=== PATIENT | male | born 1955 | race Caucasian/White ===

== ENCOUNTER → 2016-05-22 | Outpatient (CLI) | payer BC ==
[~2016-05-22] MED LIST: OPTIRAY 320 IV PRN
--- NOTE | 2016-05-22 13:37 | DIAGNOSTIC IMAGING REPORT ---
CT SCAN OF THE CHEST, ABDOMEN, AND PELVIS WITH IV CONTRAST CLINICAL HISTORY: Colon cancer. COMPARISON STUDY: Chest CT dated 04/29/2015. Abdominal CT dated 06/12/2015. TECHNIQUE: Following the IV administration of 93 of Optiray 320, CT scan of the chest, abdomen, and pelvis was performed from the thoracic inlet to the proximal femora. Images are reviewed in the axial, sagittal, and coronal planes. IV contrast was administered without complication. Automated dose control exposure was utilized. CT DOSE: 1653.54 mGy.cm FINDINGS: CHEST: Thyroid: Imaged portions of the thyroid gland are normal in size and attenuation. Thoracic aorta: The thoracic aorta is normal in caliber and demonstrates standard 3-vessel arch anatomy. No dissection is seen. Pulmonary vasculature: The pulmonary trunk is normal in caliber. There are no filling defects identified in the central pulmonary vessels to indicate pulmonary was. Note that this examination was not protocoled for evaluation of the pulmonary arteries. Heart: The heart is top normal in size and without pericardial effusion. There are coronary artery calcifications. Lungs and pleural spaces: Bibasilar scarring versus atelectasis is similar to previous. There is no airspace consolidation typical for pneumonia or pleural effusion. The trachea and central airways are clear. No concerning pulmonary lesion is identified. Mediastinum: There is no mediastinal lymphadenopathy. Lizzy: Clear. Axillae: There is no axillary lymphadenopathy. Bony thorax: No lytic or blastic lesions are identified. ABDOMEN AND PELVIS: Liver: The contrast-enhanced liver is normal in size, contour, and attenuation. There is no intrahepatic or ductal dilatation. The hepatic veins and portal veins are patent. Gallbladder: Small gallstones are noted. The gallbladder is otherwise normal in appearance. Spleen: Normal in size and attenuation. Pancreas: Unremarkable. Adrenal glands: Unremarkable. Kidneys: The contrast enhanced kidneys demonstrate mild cortical atrophy and are without hydronephrosis. There are bilateral parapelvic cysts. The kidneys enhance symmetrically. Abdominal vasculature: The abdominal aorta is normal in course and caliber noting scattered foci of atherosclerotic calcification. Bowel: There are postoperative changes from right hemicolectomy with ileocolic anastomosis. No bowel obstruction is seen. There is mild diverticulosis of the remaining colon without CT evidence of acute diverticulitis. Peritoneum: There is no intraperitoneal free air or abdominal ascites. There is a fat-containing supraumbilical hernia. There is evidence of previous ventral hernia repair with a midline surgical scar. Lymphadenopathy: None. Pelvic viscera: The bladder, prostate, and seminal vesicles are normal as visualized. There is fatty reconversion along the left inguinal canal. Skeletal structures: There is mild lumbosacral spondylosis. Degenerative change is noted in the sacroiliac joints. No lytic or blastic lesions are seen. IMPRESSION: 1. There is no evidence of metastatic disease in the chest, abdomen, or pelvis. 2. There is no airspace consolidation or pleural effusion. 3. There are postoperative changes from right hemicolectomy with ileocolic anastomosis. No bowel obstruction is seen. 4. There is mild diverticulosis of the remaining colon without CT evidence of acute diverticulitis. 5. Cholelithiasis. 6. Additional findings as above. Electronically signed by: Angel Parish M.D. 05/22/2016 1:35 PM Dictated Date/Time: 05/22/2016 1:28 PM
== END | disposition home or self-care (01) ==
LOC: C.CTS 12:30
PROVIDERS: ATTEND Nurse Practitioner
DX: C18.4 Malignant neoplasm of transverse colon (principal)

== ENCOUNTER 2019-11-21 11:42 | Inpatient (IN) ==
--- OUTSIDE RECORDS SUMMARY | 2019-11-21 11:44 | External Medical Summary | Continuity of Care Document ---
:1955 Author Name Romi Parra, Provider Address Unavailable Unavailable , Care Team Providers Name Role Phone Frantz Chapa M.D. Unavailable [email or web address], S Unavailable Unavailable Unavailable Unavailable Unavailable Assessments Assessed Problems:Incisional hernia Problems Incisional hernia (553.21) (K43.2) Adenocarcinoma, colon (153.9) (C18.9) Allergies and Adverse Reactions No Known Drug Allergies (Allergy) Medications No Reported Medications Refills: 0 Procedures History of Partial Colectomy Status: Com pleted 28-Apr-2013 0:00 History of Inguinal Hernia Repair Status : Completed History of Incisional Hernia Repair Stat us: Completed Immunizations Immunizations not documented Family History Father Family history of Progressive supranuclear palsy (333.0) (G2 3.1) Status: Active Social History - Smoking Status Ex-smoker Interventions Discussion/SummaryPost-operative inguinal herniorrhaphy. The patient is doing well, no problems reported and the patient is satisfied. We discussed resumption of normal activities/return to work type of issues. Follow up will be prn. Plan of Treatment Planned Observations Planned Goals not documented Results No Known Results Results not documented Encounters Appointment; Frantz Chapa M.D. 30-Jul-2015 15:20 Encounter Diagnosis: Problem not documented
--- OUTSIDE RECORDS SUMMARY | 2019-11-21 11:45 | External Medical Summary | Continuity of Care Document ---
:1955 Author Name Romi Parra, Provider Address Unavailable Unavailable , Care Team Providers Name Role Phone Frantz Chapa M.D. Unavailable [email or web address] [email or web address], S Unavailable Unavailable Unavailable Unavailable Unavailable Assessments Assessed Problems:Incisional hernia Problems Adenocarcinoma, colon (153.9) (C18.9) Incisional hernia (553.21) (K43.2) Allergies and Adverse Reactions No Known Drug [...]
[2019-11-21 12:27] LABS: Appearance Urine Cloudy (Clear); Bacteria Urine Automated Negative (Negative); Blood Urine Negative (Negative); Color Urine Dark Yellow; Epithelial Cell Urine Auto >30 /lpf (0-5); Glucose Urine UA Negative (Negative); Ketones Urine Negative (Negative); Leukocyte Esterase Urine Negative (Negative); Nitrite Urine Negative (Negative); Protein Urine 1+ (Negative); RBC Urine Automated 0-4 /hpf (0-4); Specific Gravity Urine 1.032 (1.000-1.030); Urobilinogen Urine Negative (Negative)
[2019-11-21 12:30] LABS: Basophils # (auto) 0.01 K/uL (0-0.2); Basophils % (auto) 0.1 %; Eosinophils # (auto) 0.01 K/uL (0-0.5); Eosinophils % (auto) 0.1 %; Hematocrit (blood only) 53.9 % (42-52); Hemoglobin 19.3 g/dL (14.0-18.0); Immature Granulocytes # (auto) 0.01 K/uL (0.00-0.02); Immature Granulocytes % (auto) 0.1 %; Lymphocytes # (auto) 1.66 K/uL (1.2-3.4); Lymphocytes % (auto) 21.9 %; Mean Corpuscular Hemoglobin 32.6 pg (25-34); Mean Corpuscular Hgb Conc 35.8 g/dL (32-36); Mean Platelet Volume 9.8 fL (7.4-10.4); Monocytes # (auto) 1.51 K/uL (0.11-0.59); Monocytes % (auto) 19.9 %; Neutrophils # (auto) 4.39 K/uL (1.4-6.5); Neutrophils % (auto) 57.9 %; Platelet Count 281 K/uL (130-400); RDW Coefficient of Variation 13.3 % (11.5-14.5); RDW Standard Deviation 44.2 fL (36.4-46.3); Red Blood Count 5.92 M/uL (4.7-6.1); White Blood Count 7.59 K/uL (4.8-10.8)
[2019-11-21 12:36] LABS: Bilirubin Urine Negative (Negative); Ictotest Urine Negative (Negative)
[2019-11-21 12:49] LABS: Albumin Level 4.1 gm/dl (3.4-5.0); BUN Creatinine Ratio 18.5 (10-20); Calcium 9.2 mg/dl (8.5-10.1); Creatinine Clr Calc Pharmacy 34.4 ml/min; Est GFR (African American) 31.3; Potassium 3.6 mmol/L (3.5-5.1)
[2019-11-21 12:52] LABS: Albumin Globulin Ratio 0.8 (0.9-2); Bilirubin,Total 0.7 mg/dl (0.2-1); Globulin 5.4 gm/dl (2.5-4.0); Mucus Urine Present (None Prsent); Total Protein 9.5 gm/dl (6.4-8.2)
[2019-11-21] MEDS ORDERED: SODIUM CHLORIDE 0.9% 1000ML 1,000 ML IV STA (12:55)
[2019-11-21] MEDS ORDERED: SODIUM CHLORIDE 0.9% 1000ML 500 ML IV ONE (12:55)
--- NOTE | 2019-11-21 13:54 | CT Scan Report ---
CT SCAN OF THE ABDOMEN AND PELVIS WITHOUT CONTRAST CLINICAL HISTORY: Abdominal pain. History of bowel obstruction COMPARISON STUDY: May 2016 TECHNIQUE: CT scan of the abdomen and pelvis was performed from the lung bases to the proximal femurs . Images are reviewed in the axial, sagittal, and coronal planes. IV contrast was not administered fo r this examination. A dose lowering technique was utilized adhering to the principles of ALARA. CT DOSE: 953.44 mGycm FINDINGS: Lower chest: There is mild lower lobe bronchiectasis and areas of subsegmental atelectasis/scarring Liver: There is hepatic steatosis. No focal masses are visualized in this noncontrast study. Gallbladder: Cholelithiasis Spleen: Normal in size and attenuation. Pancreas: Unremarkable. Adrenal glands: Unremarkable. Kidneys: There are bilateral parapelvic renal cysts. No renal, ureteral, or bladder calculi are visua lized. Bowel: There are postsurgical changes of a right hemicolectomy with ileocolonic anastomosis. There is colonic diverticulosis. There is no evidence of acute diverticulitis. There are multiple fluid-fille d small bowel loops with air-fluid levels. There is also fluid present within the colon. The proximal jejunal loops are nondilated. The etiology of the more distal small bowel dilatation is therefore un clear. There are several borderline thickened small bowel loops. Small bowel loops appear adherent to an anterior hernia mesh. Peritoneum: There is no intraperitoneal free air or abdominal ascites. There is a fat-containing left inguinal hernia. There are several small fat-containing ventral hernias. Vasculature: The abdominal aorta is normal in course and caliber. Adenopathy: None. Pelvic viscera: There is mild prostatomegaly Skeletal structures: No destructive osseous lesions are seen. IMPRESSION: 1. Interval development of multiple dilated small bowel loops containing air-fluid levels. There is a lso fluid present within the remaining colon, in this patient status post a right hemicolectomy. The proximal small bowel is of normal caliber. There are several small bowel loops within the right lower quadrant demonstrating bowel wall thickening. The etiology of the mid and distal small bowel dilatat ion is therefore not known. This could represent an early bowel obstruction or ileus/enteritis. Clini aiden and imaging follow-up is recommended. 2. Cholelithiasis 3. Fat-containing left inguinal hernia. Multiple small fat-containing ventral hernias 4. Hepatic steatosis ACT 112: Negative or not required by law. Electronically signed by: Avtar Gonzalez M.D. 11/21/2019 1:53 PM
[2019-11-21] MEDS ORDERED: ONDANSETRON INJ 2 MG/ML 2 ML VIAL IV STA (14:08)
[2019-11-21] MEDS ORDERED: SODIUM CHLORIDE 0.9% 1000ML 1,000 ML IV ONE (14:09)
--- NOTE | 2019-11-21 14:47 | History & Physical Report ---
Date of Service November 21, 2019 Assessment & Plan (1) Abdominal pain: Enteritis versus resolving small bowel obstruction Acetaminophen PRN, Dilaudid for severe pain. (2) Partial small bowel obstruction: Suspected resolving partial SBO. Likely secondary to adhesions from previous surgery. Can have clear liquid diet as long as no nausea or vomiting. IV fluids as below for ADELIA. (3) Enteritis: Possible diagnosis. Stool culture and C. difficile testing pending Outpatient COVID-19 test pending, since this will take several days to return will perform in-house to discontinue isolation. (4) COVID-19 virus test result unknown: As above (5) Diarrhea: Last BM 10 BM/day, mostly water. Stool culture and C. difficile toxin test pending (6) ADELIA (acute kidney injury): Suspected prerenal. No obstructive uropathy on CT. Additional NSS 1 L bolus now. Been rehydrated with LR @175 ml/hr (7) Cancer of transverse colon: s/p hemicolectomy. Most recent CEA in September negative. Admission and Anticipated Discharge Date Admission Date: November 21, 2019 History of Present Illness Chief Complaint: Abdominal pain, diarrhea, vomiting. Primary Care Provider: Leonardo Swan Idris Metcalf is a 64-year-old male with prior history of colon cancer status post hemicolectomy who presents to the ER with abdominal pain, diarrhea, vomiting. Started 2 days ago. Initially with cramping central abdominal pains every 5 minutes. Similar pains with prior small bowel obstruction. Then started having loose stool (approx 20 BM in last 2 days), a lot of nausea and vomiting. Nothing abnormal to eat in the 2 days prior to this. He lives with his who is not sick. He called his PCP yesterday who arranged an outpatient COVID-19 test which is outstanding this time -he was told it would take approximately 7 days to come back. He denies any cough, shortness of breath, loss of taste or smell. He does note hoarseness and a sore throat however this occurred after 2 days of dry heaves. 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 In the ER he had CT abdomen/pelvis with IV contrast. This showed multiple dilated small bowel loops containing air-fluid levels representing possible early bowel obstruction versus ileus/enteritis. He continues to have loose stool, occasionally watery. Still nauseous but no longer vomiting. Abdominal pain is subsiding. Main reason for coming to the ER today was poor oral intake. Allergies Allergy/AdvReac Type Severity Reaction Status Date / Time No Known Allergies Allergy Unverified 11/21/19 14:21 Home Medications Home Medications Medication Instructions Recorded Confirmed Type No Known Home Medications 11/21/19 11/21/19 History Past Med/Surg History Medical History Colon cancer Surgical History History of incisional hernia repair 2014 History of right hemicolectomy 2013 Social History Smoking Status: Former smoker Do You Dip or Chew Tobacco: No; Hx Alcohol Use: No Hx Substance Use: No Preferred Language: [place]ib[place]ian Communication Ability: Effective Draw Furnace Tender Required: No Beliefs That Will Affect Care: None Current Living Situation: Spouse Current Living Situation Comment: laya metcalf Feels Safe at Home: Yes Review of Systems Review of Systems: All systems reviewed & are unremarkable except as noted in HPI & below Physical Exam Constitutional: well developed and well nourished; no acute distress Eyes: + anicteric sclerae; normal pupil size ENMT: external ear and nose normal, oropharynx normal Neck: trachea midline, no thyromegaly Respiratory: normal respiratory effort, lungs clear to auscultation Cardiovascular: RRR, no murmur, no edema Gastrointestinal (Abdomen): Inspection/Auscultation: + abdomen distended and + hypoactive bowel sounds Percussion/Palpation: + abdomen tender (Generalized) and abdomen soft; no guarding and abdomen not rigid Musculoskeletal: no cyanosis or clubbing, extremities motor strength 5/5 Skin: no rashes, warm and dry Neurologic: moves all extremities and awake; not confused Psychiatric: A+Ox3, euthymic affect Genitourinary: no CVA tenderness Results & Data Results & Data ([facility]) Vital Signs (Past 12 Hours) Vital Signs Temp Pulse Pulse Resp BP BP Pulse Ox 11/21/19 14:00 37.1 C 69 18 147/84 H 94 11/21/19 13:00 94 11/21/19 11:45 84 163/[address] SCAN OF THE ABDOMEN AND PELVIS WITHOUT CONTRAST IMPRESSION: 1. Interval development of multiple dilated small bowel loops containing air- fluid levels. There is also fluid present within the remaining colon, in this patient status post a right hemicolectomy. The proximal small bowel is of normal caliber. There are several small bowel loops within the right lower quadrant demonstrating bowel wall thickening. The etiology of the mid and distal small bowel dilatation is therefore not known. This could represent an early bowel obstruction or ileus/enteritis. Clinical and imaging follow-up is recommended. 2. Cholelithiasis 3. Fat-containing left inguinal hernia. Multiple small fat-containing ventral hernias 4. Hepatic steatosis Code Status & VTE Plan Code Status Full VTE Prophylaxis Plan VTE Prophylaxis will be ordered: No PG Care Time/CCT Total # of Minutes Spent Total Time Spent with Patient: Total time spent is greater than 50% in coordination of care (as documented) at patient's floor/unit and/or counseling patient: Coding Level of Care Code 96574 Initial Inpt Care Lvl 2 Diagnoses Abdominal pain R10.9 Partial small bowel obstruction K56.600 Enteritis K52.9 COVID-19 virus test result unknown Z20.828 Diarrhea R19.7 ADELIA (acute kidney injury) N17.9 Cancer of transverse colon C18.4
--- NOTE | 2019-11-21 17:31 | Emergency Department Note ---
Impression & Plan Partial small bowel obstruction, ADELIA (acute kidney injury) ED Provider Note INFORMANT: Patient ED PROVIDER(S): Sylvester Mg MD CHIEF COMPLAINT: Abdominal pain PLAN: Disposition: Admit Condition: Good MEDICAL DECISION MAKING: Patient presented with upper abdominal discomfort. He noted yesterday was worse than today but was still having symptoms. He was hydrated. He was given Zofran. He declined analgesia. The patient underwent CT imaging and had blood work obtained. He had acute kidney injury on his blood work. CT imaging reveals what is consistent with a partial small bowel obstruction. The patient will need further management in the hospital. Patient was in agreement. Consultation was made with [facility] internal medicine, Dr. Brennan. He evaluated patient in the ER and admitted him. Triage Nursing notes reviewed and agree them. Vital Signs: reviewed and remarkable for no significant abnormalities Differential diagnosis: Etiologies such as obstruction, gastroenteritis, food borne illness, infections, appendicitis, diverticulitis, inflammatory bowel disease, GI bleed, biliary pathology, as well as others were entertained. Diagnostics interpreted by me: Imaging studies: CT imaging of the abdomen pelvis reveals scattered air-fluid levels concerning for partial obstruction. I refer you to the EMR for further details. Consultation(s): [facility] hospitalist service HPI: The patient is a 64 year old male who presents to the Emergency Room with complaints of abdominal pain. This started 2 days ago and is feeling similar to prior bowel blockage. The patient also notes the following associated symptoms, nausea, vomiting. The patient has found no relieving factors. Current pain is rated as 4/10. Patient declines analgesia. He contacted his primary office who directed him for COVID testing. No other medications or work-up was performed. Because he was still feeling symptomatic he was directed to the ER for further evaluation. He denies any loss of taste or smell. He has no sick contacts with kaminski patients. Pt denies LOC, headache, fevers, chills, diaphoresis, visual changes, neck pain, chest pain, breathing difficulties, back pain, melena, hematochezia, urinary symptoms, numbness, weakness, lymphadenopathy, rash, or other complaints. ROS: See above HPI for pertinent positives & negatives. A total of 10 systems reviewed and were otherwise negative. PAST MEDICAL HISTORY:See Below, colon cancer PAST SURGICAL HISTORY:See Below, bowel resection FAMILY HISTORY:See Below SOCIAL HISTORY:See Below, no smoking HOME MEDICATIONS:See Below ALLERGIES:See Below VITALS:See Below PHYSICAL EXAMINATION: GENERAL: Awake, alert, uncomfortable-appearing, in no distress HENT: Normocephalic, atraumatic. Oropharynx unremarkable. EYES: Normal conjunctiva. Sclera non-icteric. NECK: Inspection normal. Non-tender. Supple. No nuchal rigidity. FROM. No masses. RESPIRATORY: Clear to auscultation. No wheezes. No rales. Normal respiratory effort. CARDIAC: Normal rate. Normal rhythm. No murmurs. No rubs. Extremities warm and well perfused. Pulses equal. No JVD. GI: Soft, non-distended. Upper tenderness to palpation. No rebound or guarding. No masses. RECTAL: Deferred. MUSCULOSKELETAL: Atraumatic. Chest examination reveals no tenderness. The back is symmetrical on inspection without obvious abnormality. There is no CVA tenderness to palpation. No joint edema. LOWER EXTREMITIES: Calves are equal size bilaterally and non-tender. No edema. No discoloration. NEURO: Normal sensorium. No sensory or motor deficits noted. SKIN: No rash or jaundice noted. Sylvester Mg MD Past Med/Surg History Medical History (Updated 11/21/19 @ 17:27 by Sylvester Mg MD) Colon cancer Surgical History (Updated 11/21/19 @ 14:50 by Ronnie Brennan MD) History of incisional hernia repair 2014 History of right hemicolectomy 2014 Social History Smoking Status: Never smoker Preferred Language: Kazakh Feels Safe at Home: Yes Allergies Allergies Allergy/AdvReac Type Severity Reaction Status Date / Time No Known Allergies Allergy Unverified 11/21/19 14:21 Home Meds Home Medications Medication Instructions Recorded Confirmed No Known Home Medications 11/21/19 11/21/19 Results & Data (ED) Vital Signs Vital Signs - 24 hr 11/21/19 11:45 11/21/19 13:00 11/21/19 14:00 Temperature 37.1 C Temperature Source Oral Pulse Rate 84 Pulse Rate [Right Finger] 69 Pulse Rhythm Regular Respiratory Rate 18 Respiratory Effort / Characteristics Non-Labored Spontaneous Non-Labored Spontaneous Respiratory Depth Normal Normal Respiratory Pattern Regular Regular Blood Pressure 163/97 H Blood Pressure [Right Arm] 147/84 H Blood Pressure Mean 119 Blood Pressure Mean [Right Arm] 105 Blood Pressure Position [Right Arm] Sitting Pulse Oximetry 95 94 94 Oxygen Delivery Method Room Air Room Air Room Air Sepsis Recent Fever Within 48 Hours No Sepsis New/Unexplained Change in Mental Status No Sepsis Action Taken by Nursing No Action Required 11/21/19 15:00 11/21/19 17:00 Temperature Temperature Source Pulse Rate Pulse Rate [Right Finger] 68 71 Pulse Rhythm Respiratory Rate 20 18 Respiratory Effort / Characteristics Non-Labored Spontaneous Non-Labored Spontaneous Respiratory Depth Normal Normal Respiratory Pattern Regular Regular Blood Pressure Blood Pressure [Right Arm] 141/91 H 145/85 H Blood Pressure Mean Blood Pressure Mean [Right Arm] 107 105 Blood Pressure Position [Right Arm] Lying Pulse Oximetry 98 93 Oxygen Delivery Method Room Air Room Air Sepsis Recent Fever Within 48 Hours Sepsis New/Unexplained Change in Mental Status Sepsis Action Taken by Nursing Laboratory Data Result diagrams: 11/21/19 12:10 11/21/19 12:10 Lab Results 11/21/19 11/21/19 11/21/19 Range/Units 12:10 12:10 12:10 WBC 7.59 (4.8-10.8) K/uL RBC 5.92 (4.7-6.1) M/uL Hgb 19.3 H (14.0-18.0) g/dL Hct 53.9 H (42-52) % MCV 91.0 (80-100) fL MCH 32.6 (25-34) pg MCHC 35.8 (32-36) g/dL RDW Std Deviation 44.2 (36.4-46.3) fL RDW Coeff of Alena 13.3 (11.5-14.5) % Plt Count 281 (130-400) K/uL MPV 9.8 (7.4-10.4) fL Immature Gran % (Auto) 0.1 % Neut % (Auto) 57.9 % Lymph % (Auto) 21.9 % [place] % (Auto) 19.9 % Eos % (Auto) 0.1 % Baso % (Auto) 0.1 % Neut # (Auto) 4.39 (1.4-6.5) K/uL Lymph # (Auto) 1.66 (1.2-3.4) K/uL [place] # (Auto) 1.51 H (0.11-0.59) K/uL Eos # (Auto) 0.01 (0-0.5) K/uL Baso # (Auto) 0.01 (0-0.2) K/uL Immature Gran # (Auto) 0.01 (0.00-0.02) K/uL Sodium 135 L (136-145) mmol/L Potassium 3.6 (3.5-5.1) mmol/L Chloride 106 (98-107) mmol/L Carbon Dioxide 18 L (21-32) mmol/L Anion Gap 11.0 (3-11) BUN 45 H (7-18) mg/dl Creatinine 2.45 H (0.6-1.4) mg/dl Est Cr Clr Drug Dosing 34.4 ml/min Est GFR ( Amer) 31.3 Est GFR (Non-Af Amer) 27.0 BUN/Creatinine Ratio 18.5 (10-20) Glucose 145 H (70-99) mg/dl Calcium 9.2 (8.5-10.1) mg/dl Magnesium (1.8-2.4) mg/dl Total Bilirubin 0.7 (0.2-1) mg/dl AST 18 (15-37) U/L ALT 35 (12-78) U/L Alkaline Phosphatase 81 (45-117) U/L Total Protein 9.5 H (6.4-8.2) gm/dl Albumin 4.1 (3.4-5.0) gm/dl Globulin 5.4 H (2.5-4.0) gm/dl Albumin/Globulin Ratio 0.8 L (0.9-2) Lipase 48 L (73-393) U/L Urine Color Dark Yellow Urine Appearance Cloudy A (Clear) Urine pH 5.0 (4.5-7.5) Ur Specific [place] 1.032 H (1.000-1.030) Urine Protein 1+ H (Negative) Urine Glucose (UA) Negative (Negative) Urine Ketones Negative (Negative) Urine Blood Negative (Negative) Urine Nitrite Negative (Negative) Urine Bilirubin Negative (Negative) Urine Urobilinogen Negative (Negative) Ur Leukocyte Esterase Negative (Negative) Urine WBC (Auto) 1-5 (0-5) /hpf Urine RBC (Auto) 0-4 (0-4) /hpf U Hyaline Cast (Auto) 5-10 H (0-5) /lpf U Epithel Cells (Auto) >30 H (0-5) /lpf Urine Bacteria (Auto) Negative (Negative) Urine Mucus Present A (None Prsent) COVID-19 Eval Order 11/21/19 11/21/19 Range/Units 12:10 16:32 WBC (4.8-10.8) K/uL RBC (4.7-6.1) M/uL Hgb (14.0-18.0) g/dL Hct (42-52) % MCV (80-100) fL MCH (25-34) pg MCHC (32-36) g/dL RDW Std Deviation (36.4-46.3) fL RDW Coeff of Alena (11.5-14.5) % Plt Count (130-400) K/uL MPV (7.4-10.4) fL Immature Gran % (Auto) % Neut % (Auto) % Lymph % (Auto) % [place] % (Auto) % Eos % (Auto) % Baso % (Auto) % Neut # (Auto) (1.4-6.5) K/uL Lymph # (Auto) (1.2-3.4) K/uL [place] # (Auto) (0.11-0.59) K/uL Eos # (Auto) (0-0.5) K/uL Baso # (Auto) (0-0.2) K/uL Immature Gran # (Auto) (0.00-0.02) K/uL Sodium (136-145) mmol/L Potassium (3.5-5.1) mmol/L Chloride (98-107) mmol/L Carbon Dioxide (21-32) mmol/L Anion Gap (3-11) BUN (7-18) mg/dl Creatinine (0.6-1.4) mg/dl Est Cr Clr Drug Dosing ml/min Est GFR ( Amer) Est GFR (Non-Af Amer) BUN/Creatinine Ratio (10-20) Glucose (70-99) mg/dl Calcium (8.5-10.1) mg/dl Magnesium 2.6 H (1.8-2.4) mg/dl Total Bilirubin (0.2-1) mg/dl AST (15-37) U/L ALT (12-78) U/L Alkaline Phosphatase (45-117) U/L Total Protein (6.4-8.2) gm/dl Albumin (3.4-5.0) gm/dl Globulin (2.5-4.0) gm/dl Albumin/Globulin Ratio (0.9-2) Lipase (73-393) U/L Urine Color Urine Appearance (Clear) Urine pH (4.5-7.5) Ur Specific [place] (1.000-1.030) Urine Protein (Negative) Urine Glucose (UA) (Negative) Urine Ketones (Negative) Urine Blood (Negative) Urine Nitrite (Negative) Urine Bilirubin (Negative) Urine Urobilinogen (Negative) Ur Leukocyte Esterase (Negative) Urine WBC (Auto) (0-5) /hpf Urine RBC (Auto) (0-4) /hpf U Hyaline Cast (Auto) (0-5) /lpf U Epithel Cells (Auto) (0-5) /lpf Urine Bacteria (Auto) (Negative) Urine Mucus (None Prsent) COVID-19 Eval Order Covid19 Done at [facility] Administered Medications Discontinued Medications Sodium Chloride (Nss 1000ml) 500 mls @ 999 mls/hr IV .Q31M ONE Stop: 11/21/19 13:25 Last Infusion: 11/21/19 13:50 Dose: 0 mls/hr Documented by: [id number] Admin: 11/21/19 13:17 Dose: 999 mls/hr Documented by: [id number] Sodium Chloride (Nss 1000ml) 1,000 mls @ 125 mls/hr IV .Q8H STA Stop: 11/21/19 20:54 Last Infusion: 11/21/19 15:17 Dose: 0 mls/hr Documented by: [id number] Admin: 11/21/19 14:04 Dose: 125 mls/hr Documented by: [id number] Sodium Chloride (Nss 1000ml) 1,000 mls @ 999 mls/hr IV .Q1H1M ONE Stop: 11/21/19 15:09 Last Infusion: 11/21/19 16:42 Dose: 0 mls/hr Documented by: [id number] Admin: 11/21/19 15:34 Dose: 999 mls/hr Documented by: [id number] Ondansetron HCl (Ondansetron Inj 2 Mg/Ml 2 Ml Vial) 4 mg IV NOW STA Stop: 11/21/19 14:09 Last Admin: 11/21/19 15:33 Dose: 4 mg Documented by: [id number] Discharge Plan Visit Data Chief Complaint: Abdominal Pain Stated Complaint: ABD PAIN ALL OVER, ? BOWEL BLOCKAGE ED Provider: Sylvester Mg Discharge Problem: Partial small bowel obstruction, ADELIA (acute kidney injury) Forms Stand Alone Forms: My [facility] Prescriptions Prescriptions: No Action No Known Home Medications RF: 0
[2019-11-21] MEDS: LACTATED RINGER'S 1,000 ML IV SCH (21:15)
[2019-11-22] MEDS: LACTATED RINGER'S 1,000 ML IV SCH ×4 (02:31→20:11)
[2019-11-22 07:20] LABS: Basophils # (auto) 0.01 K/uL (0-0.2); Basophils % (auto) 0.2 %; Eosinophils % (auto) 1.6 %; Hematocrit (blood only) 45.1 % (42-52); Hemoglobin 15.6 g/dL (14.0-18.0); Immature Granulocytes # (auto) 0.01 K/uL (0.00-0.02); Immature Granulocytes % (auto) 0.2 %; Lymphocytes # (auto) 1.84 K/uL (1.2-3.4); Lymphocytes % (auto) 28.5 %; Mean Corpuscular Hemoglobin 31.7 pg (25-34); Mean Corpuscular Hgb Conc 34.6 g/dL (32-36); Mean Corpuscular Volume 91.7 fL (80-100); Mean Platelet Volume 9.2 fL (7.4-10.4); Monocytes # (auto) 1.34 K/uL (0.11-0.59); Monocytes % (auto) 20.8 %; Neutrophils # (auto) 3.15 K/uL (1.4-6.5); Neutrophils % (auto) 48.7 %; Platelet Count 201 K/uL (130-400); RDW Coefficient of Variation 13.1 % (11.5-14.5); RDW Standard Deviation 44.1 fL (36.4-46.3); Red Blood Count 4.92 M/uL (4.7-6.1); White Blood Count 6.45 K/uL (4.8-10.8)
[2019-11-22 07:25] LABS: BUN Creatinine Ratio 23.2 (10-20); Calcium 7.8 mg/dl (8.5-10.1); Creatinine Clr Calc Pharmacy 64.9 ml/min; Est GFR (African American) 67.3; Est GFR (Non-African American) 58.1; Potassium 3.5 mmol/L (3.5-5.1)
[2019-11-22] MEDS ORDERED: CALCIUM GLUCONATE 10% 1,000 MG in SODIUM CHLORIDE 0.9% 50 ML IV ONE (14:30)
--- NOTE | 2019-11-22 15:44 | Hospitalist Progress Note ---
Date of Service November 22, 2019 Assessment & Plan (1) Abdominal pain: Enteritis versus resolving small bowel obstruction Acetaminophen PRN, Dilaudid for severe pain. (2) Partial small bowel obstruction: Suspected resolving partial SBO. Likely secondary to adhesions from previous surgery. Tolerating full liquid diet Continue IVF while taking in reduced po (3) Enteritis: Possible diagnosis. Stool culture pending, C. difficile negative COVID-19 negative (4) COVID-19 virus test result unknown: As above (5) ADELIA (acute kidney injury): No obstructive uropathy on CT. Been rehydrated with LR @175 ml/hr - will decrease to 100 ml/hr (6) Cancer of transverse colon: s/p hemicolectomy. Most recent CEA in September negative. (7) Hypocalcemia: Calcium 7.8 - will give 1,000 mg IV calcium gluconate repeat level am (8) DVT prophylaxis: SCDs, ambulation Admission and Anticipated Discharge Date Admission Date: November 21, 2019 Subjective Mr. Metcalf is improving, abdominal pain is getting better. Having diarrhea, no dark or bloody stools. No nausea or vomiting ROS Constitutional: no chills, aches, sweats or fever Respiratory: no sob,cough, sputum, or wheezing Cardiac: no chest pain, palpitations, edema, orthopnea or lightheadedness GI: see HPI : no dysuria or hesitancy Extremities: no joint pain or weakness Skin: no rash All other systems reviewed and negative Physical Exam Physical Exam: General: no distress Eyes: normal inspection, PERLL Respiratory: chest non tender, clear to auscultation, normal breath sounds, no respiratory distress, no accessory muscle use Cardiac: regular rate and rhythm, no rub or gallop, no murmur, no edema, no jvd GI/: active bowel sounds, no abd pain or tenderness, soft, non distended Extremities: normal range of motion, normal strength, non tender Neuro/Psych: alert and oriented x 3, normal mood and affect Skin: normal color, dry Results & Data Results & Data ([facility]) Vital Signs (Past 12 Hours) Vital Signs Temp Pulse Resp BP Pulse Ox 11/22/19 15:19 36.9 C 69 18 132/80 92 11/22/19 07:52 36.5 C 65 16 121/74 95 PG Care Time/CCT Total # of Minutes Spent Total Time Spent with Patient: Total time spent is greater than 50% in coordination of care (as documented) at patient's floor/unit and/or counseling patient: Coding Level of Care Code 69384 Subseq Hosp Care Lvl 2 Diagnoses Abdominal pain R10.9 Partial small bowel obstruction K56.600 Enteritis K52.9 COVID-19 virus test result unknown Z20.828 ADELIA (acute kidney injury) N17.9 Cancer of transverse colon C18.4 Hypocalcemia E83.51 DVT prophylaxis Z29.9
[2019-11-22] MEDS: HYDROmorphone INJ 0.5 MG/0.5 ML SYR IV PRN (23:56)
[2019-11-23] MEDS: LACTATED RINGER'S 1,000 ML IV SCH ×4 (05:18→20:13)
[2019-11-23] MEDS: HYDROmorphone INJ 0.5 MG/0.5 ML SYR IV PRN ×5 (05:21→18:39)
[2019-11-23 06:51] LABS: Hematocrit (blood only) 40.6 % (42-52); Hemoglobin 14.2 g/dL (14.0-18.0); Mean Corpuscular Hemoglobin 31.8 pg (25-34); Mean Corpuscular Volume 90.8 fL (80-100); Mean Platelet Volume 9.4 fL (7.4-10.4); Platelet Count 187 K/uL (130-400); RDW Coefficient of Variation 12.9 % (11.5-14.5); RDW Standard Deviation 42.6 fL (36.4-46.3); Red Blood Count 4.47 M/uL (4.7-6.1); White Blood Count 7.48 K/uL (4.8-10.8)
[2019-11-23 06:52] LABS: Albumin Level 2.7 gm/dl (3.4-5.0); BUN Creatinine Ratio 11.4 (10-20); Calcium 8.8 mg/dl (8.5-10.1); Creatinine Clr Calc Pharmacy 89.7 ml/min; Est GFR (African American) 99.6; Est GFR (Non-African American) 85.9; Potassium 3.4 mmol/L (3.5-5.1)
[2019-11-23 06:56] LABS: Albumin Globulin Ratio 0.8 (0.9-2); Bilirubin,Total 0.7 mg/dl (0.2-1); Globulin 3.6 gm/dl (2.5-4.0); Total Protein 6.3 gm/dl (6.4-8.2)
[2019-11-23] MEDS ORDERED: POTASSIUM CHLORIDE 20 MEQ TABCR PO STA (08:40)
--- NOTE | 2019-11-23 15:44 | XRay Report ---
KUB CLINICAL HISTORY: abdominal pain COMPARISON STUDY: CT of the abdomen and pelvis November 21, 2019. FINDINGS: Multiple loops of moderately dilated small bowel are noted. Small bowel dilatation has incr eased since CT of November 21, 2019. Stomach is mildly distended. IMPRESSION: Interval increase in small bowel dilatation which favors a small bowel obstruction. An i leus could appear similar but is considered less likely. ACT 112: Negative or not required by law. Electronically signed by: Lei Jules M.D. 11/23/2019 3:43 PM
--- NOTE | 2019-11-23 15:53 | Hospitalist Progress Note ---
Date of Service November 23, 2019 Assessment & Plan (1) Partial small bowel obstruction: Worsened sbo today as seen on repeat KUB. Patient with more pain and distention Had bm and passed a lot of gas this afternoon, no n/v so will hold off on NGT Continue pain control Consult gen surg (2) Enteritis: Possible diagnosis as seen on CT Stool culture negative, C. difficile negative COVID-19 negative (3) ADELIA (acute kidney injury): Resolved, creatinine was 2.45 on admission likely due to poor po intake, now 0.94. No obstructive uropathy on CT. Continue LR @ 140/hr as patient is again NPO (4) Cancer of transverse colon: s/p hemicolectomy. Most recent CEA in September negative. (5) Hypocalcemia: Replaced and resolved repeat level am (6) DVT prophylaxis: SCDs, ambulation Admission and Anticipated Discharge Date Admission Date: November 21, 2019 Subjective Mr. Metcalf is having increasing abdominal pain and distention as the day has gone on. He is not nauseas or vomiting. He is ambulating the halls. He is having liquid bowel movements but feels like his bowel is full of gas ROS Constitutional: no chills, aches, sweats or fever Respiratory: no sob,cough, sputum, or wheezing Cardiac: no chest pain, palpitations, edema, orthopnea or lightheadedness GI: no abdominal pain, nausea, vomiting, diarrhea or constipation : no dysuria or hesitancy Extremities: no joint pain or weakness Skin: no rash All other systems reviewed and negative Physical Exam Physical Exam: General: no distress Eyes: normal inspection, PERLL Respiratory: chest non tender, clear to auscultation, normal breath sounds, no respiratory distress, no accessory muscle use Cardiac: regular rate and rhythm, no rub or gallop, no murmur, no edema, no jvd GI/: active bowel sounds, no abd pain or tenderness, soft, non distended Extremities: normal range of motion, normal strength, non tender Neuro/Psych: alert and oriented x 3, normal mood and affect Skin: normal color, dry Results & Data Results & Data ([facility]) Vital Signs (Past 12 Hours) Vital Signs Temp Pulse Resp BP Pulse Ox 11/23/19 15:20 36.8 C 71 16 149/87 H 91 11/23/19 07:30 36.8 C 63 16 129/75 92 PG Care Time/CCT Total # of Minutes Spent Total Time Spent with Patient: Total time spent is greater than 50% in coordination of care (as documented) at patient's floor/unit and/or counseling patient: Coding Level of Care Code 02039 Subseq Hosp Care Lvl 3 Diagnoses Partial small bowel obstruction K56.600 Enteritis K52.9 ADELIA (acute kidney injury) N17.9 Cancer of transverse colon C18.4 Hypocalcemia E83.51 DVT prophylaxis Z29.9
--- NOTE | 2019-11-23 17:15 | Surgery Consultation ---
Date of Consultation November 23, 2019 Assessment & Plan (1) Partial small bowel obstruction: pt is a 64 year-old male who was admitted to hospital for abdominal pain, IMP: partial SBO, Plan, no emergent surgery indication now, I recommend to do conservative treatment, base on pt had BM today, hold NG tube insertion now, IV fluid, NPO, control pain, repeat labs, KUB in am, will F/U, pt and his agree with the plan, I answered all questions, Present on Admission?: Yes (2) Abdominal pain: History of Present Illness Attending Physician: Meek Street DO CC: abdominal pain History of Present Illness Chief Complaint: Abdominal pain, diarrhea, vomiting. Primary Care Provider: Leonardo Swan Idris Metcalf is a 64-year-old male with prior history of colon cancer status post hemicolectomy who presents to the ER with abdominal pain, diarrhea, vomiting. Started 2 days ago. Initially with cramping central abdominal pains every 5 minutes. Similar pains with prior small bowel obstruction. Then started having loose stool (approx 20 BM in last 2 days), a lot of nausea and vomiting. Nothing abnormal to eat in the 2 days prior to this. He lives with his who is not sick. He called his PCP yesterday who arranged an outpatient COVID-19 test which is outstanding this time -he was told it would take approximately 7 days to come back. He denies any cough, shortness of breath, loss of taste or smell. He does note hoarseness and a sore throat however this occurred after 2 days of dry heaves. On Wednesday he was as an antiques steam shower @ [facility]. In the ER he had CT abdomen/pelvis with IV contrast. This showed multiple dilated small bowel loops containing air-fluid levels representing possible early bowel obstruction versus ileus/enteritis. He continues to have loose stool, occasionally watery. Still nauseous but no longer vomiting. Abdominal pain is subsiding. Main reason for coming to the ER today was poor oral intake. I ( Sakshi Altman MD ) got a call consult SBO, I reviewed pt's H/P, Labs, CT- scan, KUB with pt and his , pt said that he had a BM today after KUB, 4 times BM yesterday, pt feels better compare 2-3 days ago, pt had right hemicolectomy for colon cancer in 2013, then pt had open repair ventral hernia with mesh in 2015, pt denies fever, no cough, Allergies Allergy/AdvReac Type Severity Reaction Status Date / Time No Known Allergies Allergy Unverified 11/21/19 14:21 Home Medications Home Medications Medication Instructions Recorded Confirmed Type No Known Home Medications 11/21/19 11/21/19 History Past Med/Surg History Medical History Colon cancer Surgical History History of incisional hernia repair 2014 History of right hemicolectomy 2013 Social History Smoking Status: Former smoker Do You Dip or Chew Tobacco: No; Hx Alcohol Use: No Hx Substance Use: No Preferred Language: Liberian Communication Ability: Effective Animated Cartoons Painter Required: No Beliefs That Will Affect Care: None Current Living Situation: Spouse Current Living Situation Comment: laya metcalf Feels Safe at Home: Yes Review of Systems Review of Systems: All systems reviewed & are unremarkable except as noted in HPI & below Allergies Allergy/AdvReac Type Severity Reaction Status Date / Time No Known Allergies Allergy Unverified 11/21/19 14:21 Home Medications Home Medications Medication Instructions Recorded Confirmed Type No Known Home Medications 11/21/19 11/21/19 History Patient History Medical History (Updated 11/23/19 @ 16:13 by SUMAN López) Colon cancer Surgical History History of incisional hernia repair 2014 History of right hemicolectomy 2013 Social History Smoking Status: Former smoker Do You Dip or Chew Tobacco: No; Hx Alcohol Use: No Hx Substance Use: No Preferred Language: Liberian Communication Ability: Effective Animated Cartoons Painter Required: No Beliefs That Will Affect Care: None Current Living Situation: Spouse Current Living Situation Comment: laya metcalf Feels Safe at Home: Yes Review of Systems Review of Systems: All systems reviewed & are unremarkable except as noted in HPI & below Constitutional: as per Subjective / HPI Eyes: as per Subjective / HPI Ear, Nose, Mouth, Throat: as per Subjective / HPI Respiratory: as per Subjective / HPI Cardiovascular: as per Subjective / HPI Gastrointestinal: as per Subjective / HPI colon cancer, S/P right hemicolectomy in 2014, open repair ventral hernia with mesh in 2016. Genitourinary: + as per Subjective / HPI and + problem reported (ADELIA) Musculoskeletal: as per Subjective / HPI Integumentary: as per Subjective / HPI Neurologic: as per Subjective / HPI Psychiatric: as per Subjective / HPI Endocrine: as per Subjective / HPI Hematologic / Lymphatic: as per Subjective / HPI Allergy / Immunological: as per Subjective / HPI Physical Exam Constitutional: WD/WN, vitals as above well developed and well nourished Eyes: PERRL, conjunctivae normal, anicteric sclerae ENMT: external ear and nose normal, oropharynx normal Neck: trachea midline, no thyromegaly Respiratory: normal respiratory effort, lungs clear to auscultation Cardiovascular: RRR, no murmur, no edema Rate/Rhythm: regular rate and regular rhythm Heart Sounds: normal S1 and normal S2 Chest (Breasts): normal inspection/palpation of breasts Gastrointestinal (Abdomen): middle line scar, soft, mild tenderness at middle line just above umbilical area, BS +, no distend, no bulging on bilateral groin, Musculoskeletal: no cyanosis or clubbing, extremities motor strength 5/5 Skin: no rashes, warm and dry Neurologic: patellar DTR's 2+ bilat, sensation intact Psychiatric: Orientation: alert and oriented x 3 Results & Data ([facility]) Vital Signs (Past 12 Hours) Vital Signs Temp Pulse Resp BP Pulse Ox 11/23/19 15:20 36.8 C 71 16 149/87 H 91 11/23/19 07:30 36.8 C 63 16 129/75 92 Laboratory Results Abnormal lab results 11/23/19 11/23/19 Range/Units 05:57 05:57 RBC 4.47 L (4.7-6.1) M/uL Hct 40.6 L (42-52) % Potassium 3.4 L (3.5-5.1) mmol/L Glucose 120 H (70-99) mg/dl Total Protein 6.3 L D (6.4-8.2) gm/dl Albumin 2.7 L (3.4-5.0) gm/dl Albumin/Globulin Ratio 0.8 L (0.9-2) Diagnostic Findings KUB CLINICAL HISTORY: abdominal pain COMPARISON STUDY: CT of the abdomen and pelvis November 21, 2019. FINDINGS: Multiple loops of moderately dilated small bowel are noted. Small bowel dilatation has increased since CT of November 21, 2019. Stomach is mildly distended. IMPRESSION: Interval increase in small bowel dilatation which favors a small bowel obstruction. An ileus could appear similar but is considered less likely. CT SCAN OF THE ABDOMEN AND PELVIS WITHOUT CONTRAST CLINICAL HISTORY: Abdominal pain. History of bowel obstruction COMPARISON STUDY: May 2016 TECHNIQUE: CT scan of the abdomen and pelvis was performed from the lung bases to the proximal femurs. Images are reviewed in the axial, sagittal, and coronal planes. IV contrast was not administered for this examination. A dose lowering technique was utilized adhering to the principles of ALARA. CT DOSE: 953.44 mGycm FINDINGS: Lower chest: There is mild lower lobe bronchiectasis and areas of subsegmental atelectasis/scarring Liver: There is hepatic steatosis. No focal masses are visualized in this noncontrast study. Gallbladder: Cholelithiasis Spleen: Normal in size and attenuation. Pancreas: Unremarkable. Adrenal glands: Unremarkable. Kidneys: There are bilateral parapelvic renal cysts. No renal, ureteral, or bladder calculi are visualized. Bowel: There are postsurgical changes of a right hemicolectomy with ileocolonic anastomosis. There is colonic diverticulosis. There is no evidence of acute diverticulitis. There are multiple fluid-filled small bowel loops with air-fluid levels. There is also fluid present within the colon. The proximal jejunal loops are nondilated. The etiology of the more distal small bowel dilatation is therefore unclear. There are several borderline thickened small bowel loops. Small bowel loops appear adherent to an anterior hernia mesh. Peritoneum: There is no intraperitoneal free air or abdominal ascites. There is a fat-containing left inguinal hernia. There are several small fat-containing ventral hernias. Vasculature: The abdominal aorta is normal in course and caliber. Adenopathy: None. Pelvic viscera: There is mild prostatomegaly Skeletal structures: No destructive osseous lesions are seen. IMPRESSION: 1. Interval development of multiple dilated small bowel loops containing air- fluid levels. There is also fluid present within the remaining colon, in this patient status post a right hemicolectomy. The proximal small bowel is of normal caliber. There are several small bowel loops within the right lower quadrant demonstrating bowel wall thickening. The etiology of the mid and distal small bowel dilatation is therefore not known. This could represent an early bowel obstruction or ileus/enteritis. Clinical and imaging follow-up is recommended. 2. Cholelithiasis 3. Fat-containing left inguinal hernia. Multiple small fat-containing ventral hernias 4. Hepatic steatosis
[2019-11-23] MEDS: DICYCLOMINE HCL 10 MG CAP PO SCH ×2 (18:29→20:11)
[2019-11-24] MEDS: HYDROmorphone INJ 0.5 MG/0.5 ML SYR IV PRN (02:20)
[2019-11-24] MEDS: LACTATED RINGER'S 1,000 ML IV SCH (03:36)
[2019-11-24 05:46] LABS: Hematocrit (blood only) 38.7 % (42-52); Hemoglobin 13.6 g/dL (14.0-18.0); Mean Corpuscular Hemoglobin 31.7 pg (25-34); Mean Corpuscular Hgb Conc 35.1 g/dL (32-36); Mean Corpuscular Volume 90.2 fL (80-100); Mean Platelet Volume 9.1 fL (7.4-10.4); Platelet Count 179 K/uL (130-400); RDW Coefficient of Variation 12.6 % (11.5-14.5); RDW Standard Deviation 41.4 fL (36.4-46.3); Red Blood Count 4.29 M/uL (4.7-6.1); White Blood Count 7.14 K/uL (4.8-10.8)
[2019-11-24 06:22] LABS: BUN Creatinine Ratio 9.2 (10-20); Calcium 8.1 mg/dl (8.5-10.1); Creatinine Clr Calc Pharmacy 96.9 ml/min; Est GFR (African American) 106.5; Est GFR (Non-African American) 91.9
[2019-11-24] MEDS: DICYCLOMINE HCL 10 MG CAP PO SCH ×4 (09:28→20:53)
--- NOTE | 2019-11-24 10:24 | Surgery Progress Note ---
Date of Service November 24, 2019 Assessment & Plan (1) Partial small bowel obstruction: pt is a 64 year-old male who was admitted to hospital for abdominal pain, nausea, vomiting, diarrhea 10 bm/day (loose,watery) KUB yesterday showed increase in SB dilatation concerning for SBO vs ileus Still having loose watery stools and passing flatus, mildly distended, no n/v stool culture, c.diff, and covid negative thus far No leukocytosis Plan: No acute surgical intervention required at this time. Given the + bowel function could have partial SBO vs enteritis Continue to encourage ambulation IV fluids while npo May consider clear liquids today slowly Continue medical management (2) Abdominal pain: secondary to partial SBO vs enteritis plan as above Dr. Altman has seen and examined pt, agrees with above. Admission and Anticipated Discharge Date Admission Date: November 21, 2019 Subjective feeling a little better today, not as bloated but still bloated. Had multiple liquid bowel movements with more gas this morning. Mostly watery not much stool content. no nausea or vomiting ambulating hallway upper abdominal pain 3/10. has not had pain medication for 10 hours appetite is low Physical Exam Constitutional: WD/WN, vitals as above no acute distress and not ill appearing Respiratory: normal respiratory effort; no respiratory distress Gastrointestinal (Abdomen): Inspection/Auscultation: + abdomen distended (very mild), normal bowel sounds and + abdominal surgical scar (midline laparotomy scar present) Percussion/Palpation: + abdomen tender (upper abdomen) and abdomen soft; no guarding and abdomen not rigid Skin: no rashes, warm and dry Psychiatric: A+Ox3, euthymic affect Results & Data ([facility]) Vital Signs (Past 12 Hours) Vital Signs Temp Pulse Resp BP Pulse Ox 11/24/19 07:13 36.4 C L 66 16 163/84 H 94 11/23/19 23:40 37.0 C 65 18 151/77 H 92 Laboratory Results 11/24/19 11/24/19 11/24/19 Range/Units 06:39 05:19 05:19 WBC 7.14 (4.8-10.8) K/uL RBC 4.29 L (4.7-6.1) M/uL Hgb 13.6 L (14.0-18.0) g/dL Hct 38.7 L (42-52) % MCV 90.2 (80-100) fL MCH 31.7 (25-34) pg MCHC 35.1 (32-36) g/dL RDW Std Deviation 41.4 (36.4-46.3) fL RDW Coeff of Alena 12.6 (11.5-14.5) % Plt Count 179 (130-400) K/uL MPV 9.1 (7.4-10.4) fL Sodium 138 (136-145) mmol/L Potassium 3.6 (3.5-5.1) mmol/L Chloride 104 (98-107) mmol/L Carbon Dioxide 30 (21-32) mmol/L Anion Gap 4.0 (3-11) BUN 8 (7-18) mg/dl Creatinine 0.87 (0.6-1.4) mg/dl Est Cr Clr Drug Dosing 96.9 ml/min Est GFR ( Amer) 106.5 Est GFR (Non-Af Amer) 91.9 BUN/Creatinine Ratio 9.2 L (10-20) Glucose 115 H (70-99) mg/dl Calcium 8.1 L (8.5-10.1) mg/dl Microbiology 11/22/19 05:19 Escherichia coli Shiga Toxins Test - Preliminary Stool Stool Culture - Preliminary No Salmonella isolated to date, No Shigella isolated to date, No Campylobacter jejuni isolated to date.
--- NOTE | 2019-11-24 15:17 | Hospitalist Progress Note ---
Date of Service November 24, 2019 Assessment & Plan (1) Partial small bowel obstruction: Worsened sbo on repeat KUB 11/23. Patient with more pain and distention again this afternoon No n/v, having bms so will hold off on NGT Clear liquids Continue pain control Consulted gen surg (2) Enteritis: Possible diagnosis as seen on CT Stool culture negative, C. difficile negative COVID-19 negative (3) ADELIA (acute kidney injury): Resolved, creatinine was 2.45 on admission likely due to poor po intake No obstructive uropathy on CT. DC IVF as patient taking po (4) Cancer of transverse colon: s/p hemicolectomy. Most recent CEA in September negative. (5) Hypocalcemia: Replaced and resolved repeat level am (6) DVT prophylaxis: SCDs, ambulation Admission and Anticipated Discharge Date Admission Date: November 21, 2019 Subjective Mr. Metcalf was feeling a bit better this morning, passing gas and having liquid bowel movements, none black or bloody. This afternoon he is again experience abdominal tightness and an increase in pain ROS Constitutional: no chills, aches, sweats or fever Respiratory: no sob,cough, sputum, or wheezing Cardiac: no chest pain, palpitations, edema, orthopnea or lightheadedness GI: no abdominal pain, nausea, vomiting, diarrhea or constipation : no dysuria or hesitancy Extremities: no joint pain or weakness Skin: no rash All other systems reviewed and negative Physical Exam Physical Exam: General: no distress Eyes: normal inspection, PERLL Respiratory: chest non tender, clear to auscultation, normal breath sounds, no respiratory distress, no accessory muscle use Cardiac: regular rate and rhythm, no rub or gallop, no murmur, no edema, no jvd GI/: active bowel sounds, mild epigastric tenderness, soft, mild distention Extremities: normal range of motion, normal strength, non tender Neuro/Psych: alert and oriented x 3, normal mood and affect Skin: normal color, dry Results & Data Results & Data ([facility]) Vital Signs (Past 12 Hours) Vital Signs Temp Pulse Resp BP Pulse Ox 11/24/19 07:13 36.4 C L 66 16 163/84 H 94 PG Care Time/CCT Total # of Minutes Spent Total Time Spent with Patient: Total time spent is greater than 50% in coordination of care (as documented) at patient's floor/unit and/or counseling patient: Coding Level of Care Code 81801 Subseq Hosp Care Lvl 2 Diagnoses Partial small bowel obstruction K56.600 Enteritis K52.9 ADELIA (acute kidney injury) N17.9 Cancer of transverse colon C18.4 Hypocalcemia E83.51 DVT prophylaxis Z29.9
[2019-11-24] MEDS: HYDROCODONE/ACETAMOPHEN 5/325MG TAB PO PRN ×2 (15:51→20:53)
[2019-11-25 06:26] LABS: Hematocrit (blood only) 40.8 % (42-52); Hemoglobin 14.3 g/dL (14.0-18.0); Mean Corpuscular Hemoglobin 31.7 pg (25-34); Mean Corpuscular Volume 90.5 fL (80-100); Mean Platelet Volume 9.2 fL (7.4-10.4); Platelet Count 215 K/uL (130-400); RDW Coefficient of Variation 12.6 % (11.5-14.5); RDW Standard Deviation 41.9 fL (36.4-46.3); Red Blood Count 4.51 M/uL (4.7-6.1); White Blood Count 8.08 K/uL (4.8-10.8)
[2019-11-25 07:10] LABS: BUN Creatinine Ratio 7.8 (10-20); Calcium 8.3 mg/dl (8.5-10.1); Creatinine Clr Calc Pharmacy 92.7 ml/min; Est GFR (African American) 103.6; Est GFR (Non-African American) 89.4
[2019-11-25] MEDS: HYDROCODONE/ACETAMOPHEN 5/325MG TAB PO PRN ×3 (08:19→18:36)
[2019-11-25] MEDS: DICYCLOMINE HCL 10 MG CAP PO SCH ×4 (08:20→20:19)
--- NOTE | 2019-11-25 08:53 | Surgery Progress Note ---
Date of Service November 25, 2019 Assessment & Plan (1) Partial small bowel obstruction: Clinically doing okay. We will recheck KUB. If shows improvement will advance to full liquid diet. Admission and Anticipated Discharge Date Admission Date: November 21, 2019 Subjective Patient seen. Feeling better today than he has been. No nausea. Still has some epigastric discomfort. Multiple bowel movements over the last 24 hours as well as increased flatus. He feels as though his abdominal distention is decreased as well. Physical Exam Physical Exam: Alert no acute distress Abdomen is soft with mild distention. Active bowel sounds. Mild epigastric tenderness. No guarding rebound or rigidity Results & Data ([facility]) Vital Signs (Past 12 Hours) Vital Signs Temp Pulse Resp BP BP Pulse Ox 11/25/19 08:08 37.2 C 66 16 135/79 90 11/24/19 23:18 36.8 C 60 16 136/77 90 PG Care Time/CCT Total # of Minutes Spent Total Time Spent with Patient: Total time spent is greater than 50% in coordination of care (as documented) at patient's floor/unit and/or counseling patient: Coding Level of Care Code 92865 Subseq Hosp Care Lvl 2 Diagnoses Partial small bowel obstruction K56.600
--- NOTE | 2019-11-25 09:25 | XRay Report ---
KUB CLINICAL HISTORY: Follow-up small bowel obstruction. FINDINGS: 2 AP supine abdominal radiographs are compared to study dated 11/23/2019 and correlated with abdominal CT dated 11/21/2019. There is persistent distention of the small bowel loops which measure up to 6 cm diameter. No evidence of intraperitoneal free air is seen on these supine images. There ar e no abnormal abdominal calcifications. The bony structures appear intact. IMPRESSION: Persistent small bowel distention which favors obstruction. Clinical correlation will be required. Electronically signed by: Angel Parish M.D. 11/25/2019 9:24 AM
[2019-11-25] MEDS ORDERED: POTASSIUM CHLORIDE 20 MEQ TABCR PO STA (09:45)
[2019-11-25] MEDS: PANTOprazole 40 MG TAB PO SCH (10:18)
--- NOTE | 2019-11-25 19:00 | Hospitalist Progress Note ---
Date of Service November 25, 2019 Assessment & Plan (1) Partial small bowel obstruction: Continues to show sbo on repeat KUB today. No n/v, having bms Clear liquids Continue pain control Consulted gen surg Will order small bowel follow through for am. NPO after MN (2) Enteritis: Possible diagnosis as seen on CT Stool culture negative, C. difficile negative COVID-19 negative (3) ADELIA (acute kidney injury): Resolved, creatinine was 2.45 on admission likely due to poor po intake No obstructive uropathy on CT. (4) Cancer of transverse colon: s/p hemicolectomy. Most recent CEA in September negative. (5) Hypocalcemia: Replaced and resolved repeat level am (6) DVT prophylaxis: SCDs, ambulation (7) Hypokalemia: replaced, repeat bmp am Admission and Anticipated Discharge Date Admission Date: November 21, 2019 Subjective Mr. Metcalf continues to have distention and pain across his belly. He continues to have liquid bms and passing gas. ROS Constitutional: no chills, aches, sweats or fever Respiratory: no sob,cough, sputum, or wheezing Cardiac: no chest pain, palpitations, edema, orthopnea or lightheadedness GI: no abdominal pain, nausea, vomiting : no dysuria or hesitancy Extremities: no joint pain or weakness Skin: no rash All other systems reviewed and negative Physical Exam Physical Exam: General: no distress Eyes: normal inspection, PERLL Respiratory: chest non tender, clear to auscultation, normal breath sounds, no respiratory distress, no accessory muscle use Cardiac: regular rate and rhythm, no rub or gallop, no murmur, no edema, no jvd GI/: active bowel sounds, tender, soft, distended Extremities: normal range of motion, normal strength, non tender Neuro/Psych: alert and oriented x 3, normal mood and affect Skin: normal color, dry Results & Data Results & Data ([facility]) Vital Signs (Past 12 Hours) Vital Signs Temp Pulse Resp BP BP Pulse Ox 11/25/19 18:33 69 16 148/79 H 92 11/25/19 15:19 36.9 C 18 164/95 H 161/98 H 93 11/25/19 08:08 37.2 C 66 16 135/79 90 PG Care Time/CCT Total # of Minutes Spent Total Time Spent with Patient: Total time spent is greater than 50% in coordination of care (as documented) at patient's floor/unit and/or counseling patient: Coding Level of Care Code 81110 Subseq Hosp Care Lvl 2 Diagnoses Partial small bowel obstruction K56.600 Enteritis K52.9 ADELIA (acute kidney injury) N17.9 Cancer of transverse colon C18.4 Hypocalcemia E83.51 DVT prophylaxis Z29.9 Hypokalemia E87.6
[2019-11-26 06:13] LABS: BUN Creatinine Ratio 7.2 (10-20); Calcium 8.3 mg/dl (8.5-10.1); Creatinine Clr Calc Pharmacy 101.6 ml/min; Est GFR (African American) 108.5; Est GFR (Non-African American) 93.6; Magnesium 1.8 mg/dl (1.8-2.4); Potassium 3.3 mmol/L (3.5-5.1)
[2019-11-26] MEDS ORDERED: POTASSIUM CHLORIDE 20 MEQ TABCR PO STA (08:45)
--- NOTE | 2019-11-26 09:25 | Surgery Progress Note ---
Date of Service November 26, 2019 Assessment & Plan (1) Partial small bowel obstruction: Clinically appears to be improving. Internal medicine ordered a small bowel follow-through for today which I think is reasonable particularly since his KUB yesterday did not show improvement. I doubt he has a complete bowel obstruction. If contrast reaches the colon we can restart a liquid diet. Admission and Anticipated Discharge Date Admission Date: November 21, 2019 Subjective Patient seen. Continues to improve on a daily basis. Currently no nausea. His epigastric pain is improved. He feels his abdomen is less distended. He continues to have loose bowel movements. Physical Exam Physical Exam: Alert no acute distress Abdomen: Mild distention. Soft. Nontender. Results & Data ([facility]) Vital Signs (Past 12 Hours) Vital Signs Temp Pulse Resp BP Pulse Ox 11/26/19 07:50 36.9 C 65 16 143/85 H 92 11/25/19 23:07 36.8 C 64 15 136/80 92 PG Care Time/CCT Total # of Minutes Spent Total Time Spent with Patient: Total time spent is greater than 50% in coordination of care (as documented) at patient's floor/unit and/or counseling patient: Coding Level of Care Code 45812 Subseq Hosp Care Lvl 2 Diagnoses Partial small bowel obstruction K56.600
[2019-11-26] MEDS: PANTOprazole 40 MG TAB PO SCH (09:59)
[2019-11-26] MEDS: D5W AND 1/2NSS + 20MEQ KCL 20 MEQ/1,000 ML BAG IV SCH ×2 (09:59→18:17)
[2019-11-26] MEDS: DICYCLOMINE HCL 10 MG CAP PO SCH ×4 (09:59→20:20)
--- NOTE | 2019-11-26 13:16 | Hospitalist Progress Note ---
Date of Service November 26, 2019 Assessment & Plan (1) Partial small bowel obstruction: Continues to show sbo on repeated KUBs. No n/v, having bms NPO Continue pain control Consulted gen surg Awaiting small bowel follow through results (2) Enteritis: Possible diagnosis as seen on CT Stool culture negative, C. difficile negative COVID-19 negative (3) ADELIA (acute kidney injury): Resolved, creatinine was 2.45 on admission likely due to poor po intake No obstructive uropathy on CT. (4) Cancer of transverse colon: s/p hemicolectomy. Most recent CEA in September negative. (5) Hypocalcemia: Replaced and resolved (6) Hypokalemia: replaced, repeat bmp am (7) DVT prophylaxis: SCDs, ambulating halls Admission and Anticipated Discharge Date Admission Date: November 21, 2019 Subjective Mr. Metcalf is experiencing less abdominal pain than previously. Continues to have liquid bms and passing gas. No nausea ROS Constitutional: no chills, aches, sweats or fever Respiratory: no sob,cough, sputum, or wheezing Cardiac: no chest pain, palpitations, edema, orthopnea or lightheadedness GI: See HPI : no dysuria or hesitancy Extremities: no joint pain or weakness Skin: no rash All other systems reviewed and negative Physical Exam Physical Exam: General: no distress Eyes: normal inspection, PERLL Respiratory: chest non tender, clear to auscultation, normal breath sounds, no respiratory distress, no accessory muscle use Cardiac: regular rate and rhythm, no rub or gallop, no murmur, no edema, no jvd GI/: active bowel sounds, tender, soft, distended Extremities: normal range of motion, normal strength, non tender Neuro/Psych: alert and oriented x 3, normal mood and affect Skin: normal color, dry Results & Data Results & Data ([facility]) Vital Signs (Past 12 Hours) Vital Signs Temp Pulse Resp BP Pulse Ox 11/26/19 07:50 36.9 C 65 16 143/85 H 92 PG Care Time/CCT Total # of Minutes Spent Total Time Spent with Patient: Total time spent is greater than 50% in coordination of care (as documented) at patient's floor/unit and/or counseling patient: Coding Level of Care Code 07703 Subseq Hosp Care Lvl 2 Diagnoses Partial small bowel obstruction K56.600 Enteritis K52.9 ADELIA (acute kidney injury) N17.9 Cancer of transverse colon C18.4 Hypocalcemia E83.51 Hypokalemia E87.6 DVT prophylaxis Z29.9
[2019-11-27] MEDS: D5W AND 1/2NSS + 20MEQ KCL 20 MEQ/1,000 ML BAG IV SCH ×4 (02:00→18:12)
[2019-11-27] MEDS: PANTOprazole 40 MG TAB PO SCH (07:52)
[2019-11-27] MEDS: DICYCLOMINE HCL 10 MG CAP PO SCH ×4 (07:52→20:42)
--- NOTE | 2019-11-27 09:48 | Hospitalist Progress Note ---
Date of Service November 27, 2019 Assessment & Plan (1) Partial small bowel obstruction: * Continued to show sbo on repeated KUBs. * Continues to have multiple BM * General surgery consulted -- appreciate assistance * General surgery added daily miralax * IVF -- D5W 1/2 + 20meq Kcl @ 100cc/hr * Small bowel follow through with partial small bowel obstruction * No further n/v since advancement of his diet per general surgery -- full liquid ordered for lunch * Continue to monitor closely * labs in AM (2) Enteritis: * Possible diagnosis as seen on CT * Stool culture negative, C. difficile negative * COVID-19 negative (3) ADELIA (acute kidney injury): * Resolved, creatinine was 2.45 on admission likely due to poor po intake * No obstructive uropathy on CT. (4) Cancer of transverse colon: * s/p hemicolectomy. Most recent CEA in September negative. (5) Hypocalcemia: * Replaced and resolved (6) Hypokalemia: * K 3.6 -- resolved (7) DVT prophylaxis: * SCD * Ambulation encouraged Admission and Anticipated Discharge Date Admission Date: November 21, 2019 Subjective Patient evaluated this morning. Feeling better. Tolerated clear liquids last evening and then was NPO at midnight. Imaging this morning with contrast making it's way through colon. Advanced diet this morning. No further pain, but rates more of a discomfort, that is now lower midline than in days previous. No nausea or vomiting. Continues to have liquid bowel movements. Typically he utilizes Metamucil at home twice daily to help regulate his bowels and typically goes 3-4 times daily at home, whereas he is going about every hour while in the hospital. States he does have follow up for his colon ca and has routine colonoscopies. No reported unintentional weight loss/sweats. Plans for next colonoscopy in the next 2 years. Discussed it may be a good idea to have follow up sooner given his history although. Review of Systems Review of Systems: All systems reviewed & are unremarkable except as noted in HPI & below Physical Exam Constitutional: well developed and well nourished; no acute distress Eyes: + anicteric sclerae and PERRL Neck: normal visual inspection Respiratory: normal respiratory effort, lungs clear to auscultation Cardiovascular: RRR, no murmur, no edema Gastrointestinal (Abdomen): Inspection/Auscultation: + abdomen distended and normal bowel sounds Percussion/Palpation: + abdomen tender (minimally tender to deep palpation lower umbilical region) and abdomen soft; no guarding and abdomen not rigid midline scar from ventral repair minimally tender to palpation in region distal scar no hernia appreciated Musculoskeletal: no cyanosis or clubbing, extremities motor strength 5/5 Skin: warm, dry Psychiatric: A+Ox3, euthymic affect Lymphatic: no cervical or axillary lymphadenopathy Results & Data Results & Data ([facility]) Vital Signs (Past 12 Hours) Vital Signs Temp Pulse Resp BP Pulse Ox 11/27/19 06:30 36.9 C 59 L 18 127/80 90 11/26/19 23:47 36.9 C 55 L 17 126/78 92 Laboratory Results 11/27/19 11/27/19 Range/Units 10:06 10:06 WBC 8.18 (4.8-10.8) K/uL RBC 4.95 (4.7-6.1) M/uL Hgb 15.9 (14.0-18.0) g/dL Hct 44.5 (42-52) % MCV 89.9 (80-100) fL MCH 32.1 (25-34) pg MCHC 35.7 (32-36) g/dL RDW Std Deviation 41.5 (36.4-46.3) fL RDW Coeff of Alena 12.7 (11.5-14.5) % Plt Count 272 (130-400) K/uL MPV 8.9 (7.4-10.4) fL Sodium 139 (136-145) mmol/L Potassium 3.6 (3.5-5.1) mmol/L Chloride 106 (98-107) mmol/L Carbon Dioxide 24 (21-32) mmol/L Anion Gap 8.0 (3-11) BUN 5 L (7-18) mg/dl Creatinine 1.01 (0.6-1.4) mg/dl Est Cr Clr Drug Dosing 83.5 ml/min Est GFR ( Amer) 91.3 Est GFR (Non-Af Amer) 78.8 BUN/Creatinine Ratio 4.6 L (10-20) Glucose 113 H (70-99) mg/dl Calcium 8.8 (8.5-10.1) mg/dl Magnesium 2.2 (1.8-2.4) mg/dl Diagnostic Findings FL small bowel follow through IMPRESSION: Findings compatible with partial small bowel obstruction. PG Care Time/CCT Total # of Minutes Spent Total Time Spent with Patient: Total time spent is greater than 50% in coordination of care (as documented) at patient's floor/unit and/or counseling patient: Coding Level of Care Code 53933 Subseq Hosp Care Lvl 2 Diagnoses Partial small bowel obstruction K56.600 Enteritis K52.9 ADELIA (acute kidney injury) N17.9 Cancer of transverse colon C18.4 Hypocalcemia E83.51 Hypokalemia E87.6 DVT prophylaxis Z29.9
--- NOTE | 2019-11-27 10:10 | Fluoroscopy Report ---
FL small bowel follow through CLINICAL HISTORY: 64 years-old Male with sbo. Follow up study in a patient with small bowel obstruct ion TECHNIQUE: Oral barium was administered to the patient and serial radiographs of the abdomen were pe rformed. COMPARISON STUDY: KUB 11/25/2019, CT 11/21/2019 FLUOROSCOPY TIME: 0.6 minutes. 14 images were submitted. FINDINGS: Veterinary Technician Instructor radiograph of the abdomen demonstrates persistent small bowel distention. Air is also noted within the large bowel. No definite pneumatosis or pneumoperitoneum. Degenerative changes of t he lumbar spine incidentally noted. Upon the administration of oral barium contrast, there is prompt opacification of the gastric lumen a nd proximal small bowel. Transit to the large bowel occurred at approximately 1.5 hrs. Subsequently , spot fluoroscopic images of the abdomen were obtained and demonstrate freely movable bowel in all f our abdominal quadrants. The discrete transition point of the obstruction is not definitively seen. Postoperative changes of prior right hemicolectomy. Ileocolic anastomosis is not well seen. Dilated l oops of small bowel are noted throughout which includes the abdominal right lower quadrant. IMPRESSION: Findings compatible with partial small bowel obstruction. ACT 112: Negative or not required by law. The above report was generated using voice recognition software. It may contain grammatical, syntax o r spelling errors. Electronically signed by: Theron Blackwood M.D. 11/27/2019 10:09 AM
[2019-11-27 10:19] LABS: Hematocrit (blood only) 44.5 % (42-52); Hemoglobin 15.9 g/dL (14.0-18.0); Mean Corpuscular Hemoglobin 32.1 pg (25-34); Mean Corpuscular Hgb Conc 35.7 g/dL (32-36); Mean Corpuscular Volume 89.9 fL (80-100); Mean Platelet Volume 8.9 fL (7.4-10.4); Platelet Count 272 K/uL (130-400); RDW Coefficient of Variation 12.7 % (11.5-14.5); RDW Standard Deviation 41.5 fL (36.4-46.3); Red Blood Count 4.95 M/uL (4.7-6.1); White Blood Count 8.18 K/uL (4.8-10.8)
[2019-11-27 10:42] LABS: BUN Creatinine Ratio 4.6 (10-20); Calcium 8.8 mg/dl (8.5-10.1); Creatinine Clr Calc Pharmacy 83.5 ml/min; Est GFR (African American) 91.3; Est GFR (Non-African American) 78.8; Magnesium 2.2 mg/dl (1.8-2.4); Potassium 3.6 mmol/L (3.5-5.1)
--- NOTE | 2019-11-27 12:00 | Surgery Progress Note ---
Date of Service pt is doing better, passed gas and BM, no abdominal pain, no nausea, no vomiting, no fever, pt had Small bowel study today, - PSBO, November 27, 2019 Assessment & Plan (1) Partial small bowel obstruction: pt is a 64 year-old male who was admitted to hospital for abdominal pain, nausea, vomiting, diarrhea 10 bm/day (loose,watery) KUB yesterday showed increase in SB dilatation concerning for SBO vs ileus Still having loose watery stools and passing flatus, mildly distended, no n/v stool culture, c.diff, and covid negative thus far No leukocytosis Plan: No acute surgical intervention required at this time. Given the + bowel function could have partial SBO vs enteritis Continue to encourage ambulation IV fluids while npo May consider clear liquids today slowly Continue medical management 11/27/2019 11:59AM doing better, full liquid diet , will F/U, (2) Abdominal pain: secondary to partial SBO vs enteritis plan as above Dr. Altman has seen and examined pt, agrees with above. Admission and Anticipated Discharge Date Admission Date: November 21, 2019 Subjective ROS Constitutional: no chills, aches, sweats or fever Respiratory: no sob,cough, sputum, or wheezing Cardiac: no chest pain, palpitations, edema, orthopnea or lightheadedness GI: See HPI : no dysuria or hesitancy Extremities: no joint pain or weakness Skin: no rash All other systems reviewed and negative Review of Systems Constitutional: as per Subjective / HPI Eyes: as per Subjective / HPI Ear, Nose, Mouth, Throat: as per Subjective / HPI Respiratory: as per Subjective / HPI Cardiovascular: as per Subjective / HPI Gastrointestinal: as per Subjective / HPI colon cancer, S/P right hemicolectomy in 2014, open repair ventral hernia with mesh in 2016. Genitourinary: + as per Subjective / HPI and + problem reported (ADELIA) Musculoskeletal: as per Subjective / HPI Integumentary: as per Subjective / HPI Neurologic: as per Subjective / HPI Psychiatric: as per Subjective / HPI Endocrine: as per Subjective / HPI Hematologic / Lymphatic: as per Subjective / HPI Allergy / Immunological: as per Subjective / HPI Physical Exam Constitutional: WD/WN, vitals as above well developed and well nourished Eyes: PERRL, conjunctivae normal, anicteric sclerae ENMT: external ear and nose normal, oropharynx normal Neck: trachea midline, no thyromegaly Respiratory: normal respiratory effort, lungs clear to auscultation Cardiovascular: RRR, no murmur, no edema Rate/Rhythm: regular rate and regular rhythm Heart Sounds: normal S1 and normal S2 Chest (Breasts): normal inspection/palpation of breasts Gastrointestinal (Abdomen): normal bowel sounds, soft, nontender, no hepatosplenomegaly soft, NT, D, BS +. Musculoskeletal: no cyanosis or clubbing, extremities motor strength 5/5 Skin: no rashes, warm and dry Neurologic: patellar DTR's 2+ bilat, sensation intact Psychiatric: Orientation: alert and oriented x 3 Results & Data ([facility]) Vital Signs (Past 12 Hours) Vital Signs Temp Pulse Resp BP Pulse Ox 11/27/19 06:30 36.9 C 59 L 18 127/80 90
[2019-11-27] MEDS: POLYETHYLENE (MIRALAX) 17 GM PACK PO SCH (12:39)
[2019-11-27] MEDS: ENOXAPARIN INJ 40 MG/0.4 ML SYR SQ SCH (16:23)
[2019-11-28] MEDS: D5W AND 1/2NSS + 20MEQ KCL 20 MEQ/1,000 ML BAG IV SCH (03:45)
[2019-11-28 06:10] LABS: Basophils # (auto) 0.02 K/uL (0-0.2); Basophils % (auto) 0.3 %; Eosinophils # (auto) 0.31 K/uL (0-0.5); Hematocrit (blood only) 40.6 % (42-52); Hemoglobin 14.1 g/dL (14.0-18.0); Immature Granulocytes # (auto) 0.14 K/uL (0.00-0.02); Immature Granulocytes % (auto) 1.8 %; Lymphocytes # (auto) 1.85 K/uL (1.2-3.4); Lymphocytes % (auto) 23.7 %; Mean Corpuscular Hemoglobin 31.5 pg (25-34); Mean Corpuscular Hgb Conc 34.7 g/dL (32-36); Mean Corpuscular Volume 90.8 fL (80-100); Mean Platelet Volume 9.1 fL (7.4-10.4); Monocytes % (auto) 10.2 %; Platelet Count 256 K/uL (130-400); RDW Coefficient of Variation 12.8 % (11.5-14.5); RDW Standard Deviation 42.4 fL (36.4-46.3); Red Blood Count 4.47 M/uL (4.7-6.1); White Blood Count 7.82 K/uL (4.8-10.8)
[2019-11-28 06:48] LABS: Albumin Level 2.8 gm/dl (3.4-5.0); BUN Creatinine Ratio 3.9 (10-20); Calcium 8.2 mg/dl (8.5-10.1); Creatinine Clr Calc Pharmacy 91.6 ml/min; Est GFR (African American) 102.2; Est GFR (Non-African American) 88.2; Magnesium 1.8 mg/dl (1.8-2.4); Potassium 3.8 mmol/L (3.5-5.1)
[2019-11-28 06:51] LABS: Albumin Globulin Ratio 0.8 (0.9-2); Bilirubin,Total 0.7 mg/dl (0.2-1); Globulin 3.5 gm/dl (2.5-4.0); Total Protein 6.3 gm/dl (6.4-8.2)
[2019-11-28] MEDS: DICYCLOMINE HCL 10 MG CAP PO SCH ×2 (08:23→13:50)
[2019-11-28] MEDS: ENOXAPARIN INJ 40 MG/0.4 ML SYR SQ SCH (08:24)
[2019-11-28] MEDS: PANTOprazole 40 MG TAB PO SCH (08:24)
--- NOTE | 2019-11-28 10:23 | XRay Report ---
KUB HISTORY: Small bowel obstruction. Follow-up. COMPARISON: Small bowel follow-through 11/27/2019. FINDINGS: Multiple gas-filled and dilated loops and small bowel are again seen throughout the abdomen . This is similar to the prior studies. Dilated small bowel measures up to 5.6 cm in diameter. There is a mildly distended gas-filled stomach. Borderline distended gas-filled colon. Contrast within the bowel from the recent small bowel follow-through has passed in the interval. Therefore, this would be consistent with a partial small bowel obstruction or ileus. No renal calculi. No ureteral calculi. N o pneumoperitoneum or pneumatosis. IMPRESSION: No significant change in the multiple gas-filled dilated loops of small bowel seen throughout the abd omen. The contrast from the recent small bowel follow-through has passed in the interval. Therefore, this would be consistent with a partial small bowel obstruction or ileus. ACT 112: Negative or not required by law. Electronically signed by: Jairon Calixto M.D. 11/28/2019 10:22 AM
--- NOTE | 2019-11-28 11:03 | Hospitalist Progress Note ---
Date of Service November 28, 2019 Assessment & Plan Admission and Anticipated Discharge Date Admission Date: November 21, 2019 Results & Data Results & Data ([facility]) Vital Signs (Past 12 Hours) Vital Signs Temp Pulse Resp BP Pulse Ox 11/28/19 07:32 36.6 C 61 16 132/84 94 11/27/19 23:29 37.0 C 63 18 113/71 95 PG Care Time/CCT Total # of Minutes Spent Total Time Spent with Patient: Total time spent is greater than 50% in co ordination of care (as documented) at patient's floor/unit and/or counseling patient: Coding
[2019-11-28] MEDS: POLYETHYLENE (MIRALAX) 17 GM PACK PO SCH (11:45)
--- NOTE | 2019-11-28 13:05 | Discharge Summary ---
Date of Service November 28, 2019 Admission HPI Per Admitting Provider Idris Metcalf is a 64-year-old male with prior history of colon cancer status post hemicolectomy who presents to the ER with abdominal pain, diarrhea, vomiting. Started 2 days ago. Initially with cramping central abdominal pains every 5 minutes. Similar pains with prior small bowel obstruction. Then started having loose stool (approx 20 BM in last 2 days), a lot of nausea and vomiting. Nothing abnormal to eat in the 2 days prior to this. He lives with his who is not sick. He called his PCP yesterday who arranged an outpatient COVID-19 test which is outstanding this time -he was told it would take approximately 7 days to come back. He denies any cough, shortness of breath, loss of taste or smell. He does note hoarseness and a sore throat however this occurred after 2 days of dry heaves. 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 In the ER he had CT abdomen/pelvis with IV contrast. This showed multiple dilated small bowel loops containing air-fluid levels representing possible early bowel obstruction versus ileus/enteritis. He continues to have loose stool, occasionally watery. Still nauseous but no longer vomiting. Abdominal pain is subsiding. Main reason for coming to the ER today was poor oral intake. Admission Exam Per Admitting Provider Constitutional: well developed and well nourished; no acute distress Eyes: + anicteric sclerae; normal pupil size ENMT: external ear and nose normal, oropharynx normal Neck: trachea midline, no thyromegaly Respiratory: normal respiratory effort, lungs clear to auscultation Cardiovascular: RRR, no murmur, no edema Gastrointestinal (Abdomen): Inspection/Auscultation: + abdomen distended and + hypoactive bowel sounds Percussion/Palpation: + abdomen tender (Generalized) and abdomen soft; no guarding and abdomen not rigid Musculoskeletal: no cyanosis or clubbing, extremities motor strength 5/5 Skin: no rashes, warm and dry Neurologic: moves all extremities and awake; not confused Psychiatric: A+Ox3, euthymic affect Genitourinary: no CVA tenderness Principal Diagnosis SBO Discharge Exam Constitutional well developed and well nourished; no acute distress Eyes + anicteric sclerae and PERRL ENMT mmm Neck normal visual inspection Respiratory normal respiratory effort, lungs clear to auscultation Cardiovascular RRR, no murmur, no edema Gastrointestinal (Abdomen) Inspection/Auscultation: + abdomen distended (significantly less) and normal bowel sounds Percussion/Palpation: + abdomen tender (minimally tender to deep palpation lower umbilical region) and abdomen soft; no guarding and abdomen not rigid Musculoskeletal no cyanosis or clubbing, extremities motor strength 5/5 Skin warm, dry Neurologic PERRL, EOMI, accommodation nl, no face palsy, no dysarthria Psychiatric A+Ox3, euthymic affect Lymphatic no cervical or axillary lymphadenopathy Discharge Data Allergies Allergy/AdvReac Type Severity Reaction Status Date / Time No Known Allergies Allergy Unverified 11/21/19 14:21 Consultations 11/21/19 14:09 ED Decision to Admit Stat 11/21/19 14:10 Consult Health Information Management Routine 11/23/19 15:56 Consult General Surgery Routine Ordered Studies 11/21/19 12:55 CT abd pelvis wo con Stat 11/22 KUB 11/24 KUB 11/27/19 08:15 FL small bowel follow through Routine 11/27 KUB Hospital Course (1) Partial small bowel obstruction: Hx colon ca s/p hemicolectomy presented with worsening abdominal pain, distention, nausea, poor PO intake and diarrhea and dehydration secondary to aforementioned General surgery consulted -- conservative management with IVF, pain control, antiemetics Imaging with both possible obstruction and enteritis Continued to have multiple BMs and tolerated full liquid diet as advanced by general surgery. Per general surgery, no further repeat KUB unless pain worsens Continued miralax to help with GI motility and d/c'd Bentyl as previously ordered for diarrhea. Cdiff negative Repeat KUB prior to d/c with partial SBO although significantly improved from prior --> instructed to adhere to liquid diet for next week or so and to then transition to low fiber/low residue and advance as tolerated. Also discussed holding home Metamucil until this issues resolves and may resume in 1-2 weeks at half dose and increase as tolerated. Will require close outpatient follow up --> scheduled appointment with Dr. Altman tomorrow, 11/28. Of note, patient with medical providers and ca follow-up locally and req local PCP --> set up for appt Wednesday with Dr. Gastelum. To return to ER sooner for any worsening of symptoms. (2) Enteritis: * Possible diagnosis as seen on CT * Supportive tx as above * Stool culture negative, C. difficile negative * COVID-19 negative (3) ADELIA (acute kidney injury): * Resolved, creatinine was 2.45 on admission likely due to poor po intake * No obstructive uropathy on CT. * Cr returned to normal, 0.92 prior to discharge (4) Cancer of transverse colon: * s/p hemicolectomy. Most recent CEA in September. (5) Hypocalcemia: * Replaced and resolved (6) Hypokalemia: * Resolved -- K 3.8 (7) DVT prophylaxis: * SCD * Ambulation encouraged * Ordered lovenox 11/26 as had not previously been on DVT prophylaxis. Calves non-tender, non-erythematous, denied SOB/cough and remains 94% on RA Dispo: discharged home with close outpatient follow up with general surgery tomorrow and new PCP (previously seen in [place]) on wednesday Total Time Total Time Spent Total Time Spent (In Minutes): 90 Discharge Plan Discharge Items Patient Disposition: Home - Self-Care Reason For Visit: SMALL BOWEL OBSTRUCTION Discharge Diagnosis: Small Bowel Obstruction Goals: You have been hospitalized for an acute medical problem. During your stay at [facility], we have made an effort to correct the problem that brought you to the hospital while keeping you as comfortable as possible. Medications were used to bring your condition under control and your discharge instructions will include directions for any medications you should take after leaving the hospital. Please make sure you see your Primary Care Provider as part of your follow up plan. Activity: As commented below Activity Comment: until after cleared by PCP and General Surgery Non-emergency contact: Primary Care Provider Call non-emergency contact if: you have any medication questions, your symptoms worsen and your pain is concerning for you Follow-up/Referrals: Garcia Chapa DO [Primary Care Provider] - 12/04/19 9:20 am (A hospital follow up/new PCP appt. has been made for you with Dr. Garcia Chapa on at 9:20am. Please ask your previous PCP to send the records to Dr. Chapa's office. ) Sakshi Altman MD [Physician] - 11/29/19 2:15 pm (this week) Diet: Full liquid Addtl Attending Provider Instructions: You have been hospitalized for abdominal pain and found to have a small bowel obstruction. This was managed conservatively and did not require surgery. You were evaluated by general surgery, Dr. Altman, and felt that this can continue to be managed with a full liquid diet for the next week or two and then will be able to advance to a low fiber-low residue diet and advance as tolerated after that. You should be seen within the next week by general surgery and your primary care provider to monitor your progress. You have a follow up appointment scheduled with Dr. Altman tomorrow, 11/29/19 and have been set up with a new primary care provider, Dr. Gastelum, next wednesday. You should continue to use daily miralax to continue to keep your bowels moving given slow transit time as demonstrated on xray. No further imaging ordered per general surgery. Regarding your metamucil, you will need to continue to hold this for the next two weeks and slowly reintroduce this at once daily for a week before increasing to twice weekly. Please return to the emergency department with any worsening pain, inability to keep down oral fluids/food, fever, nausea or for any other symptoms that are concerning for you. It has been a pleasure being a part of the medical team providing for you while you have been in the hospital. Take care! Pending Studies at Discharge: No Stand-Alone Forms: [facility], Opioid Pain Management, Work/School Release (Inpt), Smoking Cessation Medications and DC Order Prescriptions: New polyethylene glycol 3350 [Miralax] 17 gram Powder In Packet 17 g PO DAILY 30 Days Qty: 14 RF: 0 No Action No Known Home Medications RF: 0 Discharge Orders: Discharge Order (Routine); Ordered 11/28/19 Ordered By: Alyssa Chen/Other Patient Handouts: Small Bowel Obstruction, Low-Fiber Diet, Full Liquid Diet Dc Admission Data Admit Date/Time: 11/21/19 14:39 Attending Provider: Jad Ward Admit Provider: Ronnie Brennan Primary Care Provider: Garcia Chapa Other Providers: Ronnie Brennan ; Sakshi Altman Other Interventions: Discharge Summary Assessment (RN) Last Done: 11/28/19 14:18 Coding Level of Care Code D/C Day Management >30 mins Diagnoses Partial small bowel obstruction K56.600 Enteritis K52.9 ADELIA (acute kidney injury) N17.9 Cancer of transverse colon C18.4 Hypocalcemia E83.51 Hypokalemia E87.6 DVT prophylaxis Z29.9
--- NOTE | 2019-11-28 13:26 | Surgery Progress Note ---
Date of Service F/U PSBO, doing better, he tolerated full liquid diet, no abdominal pain, still pass gas and BM, normal WBC, no fever, KUB- PSBO November 28, 2019 Assessment & Plan (1) Partial small bowel obstruction: pt is a 64 year-old male who was admitted to hospital for abdominal pain, nausea, vomiting, diarrhea 10 bm/day (loose,watery) KUB yesterday showed increase in SB dilatation concerning for SBO vs ileus Still having loose watery stools and passing flatus, mildly distended, no n/v stool culture, c.diff, and covid negative thus far No leukocytosis Plan: No acute surgical intervention required at this time. Given the + bowel function could have partial SBO vs enteritis Continue to encourage ambulation IV fluids while npo May consider clear liquids today slowly Continue medical management 11/27/2019 11:59AM doing better, full liquid diet , will F/U, 11/28/2019 1:28PM doing better, based PSBO, no emergent surgery now, full liquid diet today, may not need KUB if pt has no abdominal pain, will F/U (2) Abdominal pain: secondary to partial SBO vs enteritis plan as above Dr. Altman has seen and examined pt, agrees with above. Admission and Anticipated Discharge Date Admission Date: November 21, 2019 Subjective ROS Constitutional: no chills, aches, sweats or fever Respiratory: no sob,cough, sputum, or wheezing Cardiac: no chest pain, palpitations, edema, orthopnea or lightheadedness GI: See HPI : no dysuria or hesitancy Extremities: no joint pain or weakness Skin: no rash All other systems reviewed and negative Review of Systems Constitutional: as per Subjective / HPI Eyes: as per Subjective / HPI Ear, Nose, Mouth, Throat: as per Subjective / HPI Respiratory: as per Subjective / HPI Cardiovascular: as per Subjective / HPI Gastrointestinal: as per Subjective / HPI colon cancer, S/P right hemicolectomy in 2014, open repair ventral hernia with mesh in 2016. Genitourinary: + as per Subjective / HPI and + problem reported (ADELIA) Musculoskeletal: as per Subjective / HPI Integumentary: as per Subjective / HPI Neurologic: as per Subjective / HPI Psychiatric: as per Subjective / HPI Endocrine: as per Subjective / HPI Hematologic / Lymphatic: as per Subjective / HPI Allergy / Immunological: as per Subjective / HPI Physical Exam Constitutional: WD/WN, vitals as above well developed and well nourished Eyes: PERRL, conjunctivae normal, anicteric sclerae ENMT: external ear and nose normal, oropharynx normal Neck: trachea midline, no thyromegaly Respiratory: normal respiratory effort, lungs clear to auscultation Cardiovascular: RRR, no murmur, no edema Rate/Rhythm: regular rate and regular rhythm Heart Sounds: normal S1 and normal S2 Chest (Breasts): normal inspection/palpation of breasts Gastrointestinal (Abdomen): normal bowel sounds, soft, nontender, no hepatosplenomegaly soft, no distend, Musculoskeletal: no cyanosis or clubbing, extremities motor strength 5/5 Skin: no rashes, warm and dry Neurologic: patellar DTR's 2+ bilat, sensation intact Psychiatric: Orientation: alert and oriented x 3 Results & Data ([facility]) Vital Signs (Past 12 Hours) Vital Signs Temp Pulse Resp BP Pulse Ox KUB HISTORY: Small bowel obstruction. Follow-up. COMPARISON: Small bowel follow-through 11/27/2019. FINDINGS: Multiple gas-filled and dilated loops and small bowel are again seen throughout the abdomen. This is similar to the prior studies. Dilated small bowel measures up to 5.6 cm in diameter. There is a mildly distended gas-filled stomach. Borderline distended gas-filled colon. Contrast within the bowel from the recent small bowel follow-through has passed in the interval. Therefore, this would be consistent with a partial small bowel obstruction or ileus. No renal calculi. No ureteral calculi. No pneumoperitoneum or pneumatosis. IMPRESSION: No significant change in the multiple gas-filled dilated loops of small bowel seen throughout the abdomen. The contrast from the recent small bowel follow- through has passed in the interval. Therefore, this would be consistent with a partial small bowel obstruction or ileus. 11/28/19 07:32 36.6 C 61 16 132/84 94
== END 2019-11-28 16:06 | disposition home or self-care (01) | DRG 389 ==
LOC: ED 11:42 → 3W 14:39 → SUATTDRO 14:39 → 3W 19:29